=== PATIENT | male | born 1985 | race Native Hawaiian/Other Pacific Islander ===

== ENCOUNTER 2020-07-25 12:00 | Emergency (ER) | payer OTHER ==
[~2020-07-25] VITALS: Ht 177.8 cm; Wt 77.1 kg
[2020-07-25 13:57] VITALS: BP 138/76; TEMP 98.7
== END 2020-07-25 14:00 | disposition home or self-care (01) ==
LOC: ED 12:09
DX: S68.625A Partial traumatic transphalangeal amputation of left ring finger, initial encounter (principal); W31.89XA Contact with other specified machinery, initial encounter; Y92.89 Other specified places as the place of occurrence of the external cause
CPT/HCPCS: 90471; 90715; 99283

== ENCOUNTER 2022-11-13 11:41 | Emergency (ER) | payer OTHER ==
[~2022-11-13] VITALS: Ht 177.8 cm; Wt 74.8 kg
[2022-11-13 12:03] VITALS: BP 143/79; TEMP 98.9
[2022-11-13 13:12] LABS: PLATELET COUNT 318 K/uL (142-355)
[2022-11-13 13:20] LABS: POTASSIUM 3.5 mmol/L (3.6-5.2)
[2022-11-13 13:33] LABS: PARTIAL THROMBOPLASTIN TIME 29.4 SECONDS (24.5-33.6)
== END 2022-11-13 13:40 | disposition home or self-care (01) ==
LOC: ED 11:41
PROVIDERS: Emergency Medicine
DX: L03.116 Cellulitis of left lower limb (principal)
CPT/HCPCS: 80053; 85027; 85610; 85730; 99283